=== PATIENT | male | born 1990 | race Caucasian/White ===

== ENCOUNTER → 2020-08-09 10:46 | Outpatient (BNVA) | payer OTHER, SELFPAY | PROVIDERS: PCP Physician Assistant; Visit Provider Nurse Practitioner | DX: Z76.89 Persons encountering health services in other specified circumstances (principal) ==

== ENCOUNTER 2021-02-03 08:24 | Outpatient (REF) | payer OTHER, SELFPAY ==
[2021-02-03 09:22] LABS: Estimated Average Glucose 91 mg/dL; Hemoglobin A1c % 4.8 %
[2021-02-03 09:37] LABS: Alanine Aminotransferase 8 U/L (0-40); Albumin Level 4.8 g/dL (3.5-5.0); Alkaline Phosphatase 67 U/L (39-117); Anion Gap 12 (12-20); Aspartate Amino Transferase 17 U/L (5-37); Bilirubin Total 0.9 mg/dL (0.0-1.0); Blood Urea Nitrogen 11 mg/dL (9-16); Calcium 9.6 mg/dL (8.4-10.2); Carbon Dioxide 27 mmol/L (22-29); Chloride 104 mmol/L (96-108); Estimated Glomerular Filt Rate > 60; Glucose Fasting 82 mg/dL (60-99); Potassium 3.8 mmol/L (3.3-5.1); Sodium 139 mmol/L (135-145); Total Protein 7.7 g/dL (6.5-8.0)
[2021-02-03 10:01] LABS: TSH reflex Free T4 0.85 uIU/mL (0.32-4.0)
== END 2021-02-03 08:25 | disposition home or self-care (01) ==
LOC: HO.LAB 08:24
PROVIDERS: PCP Physician Assistant; Visit Provider Physician Assistant
DX: Z13.29 Encounter for screening for other suspected endocrine disorder (principal)
CPT/HCPCS: 36415; 80053; 83036; 84443

== ENCOUNTER 2021-02-21 15:51 | Outpatient (REF) | payer OTHER, SELFPAY ==
--- NOTE | ~2021-02-21 | XR_ITS ---
EXAMINATION: XR CHEST CLINICAL INFORMATION: Encounter for screening for respiratory tuberculosis. COMPARISON: None TECHNIQUE: 2 views of the chest were obtained. FINDINGS: The cardiac mediastinal silhouette is normal in appearance. No effusions or pneumothoraces are identified. The lungs are clear. A normal pattern of pulmonary vasculature is noted. XR/XR chest 2V IMPRESSION: Normal chest. Lungs clear.
== END 2021-02-21 15:52 | disposition home or self-care (01) ==
LOC: HO.XRAY 15:51
PROVIDERS: PCP Physician Assistant; Visit Provider Physician Assistant
DX: Z11.1 Encounter for screening for respiratory tuberculosis (principal)
CPT/HCPCS: 71046

== ENCOUNTER 2023-06-18 13:32 | Emergency (ER) | payer OTHER, SELFPAY ==
[2023-06-18 14:35] VITALS: BP 150/97; PULSE 93; RESP 16; TEMP 37.4; O2SAT 98; BMI 18.0
--- NOTE | 2023-06-18 14:51 | ED.ABDPAIN ---
HPI - Abdominal Pain General Chief Complaint: Abdominal Pain Stated Complaint: Blood in Stool ? Colon CA Time Seen by Provider: 06/18/23 21:35 Source: patient Mode of arrival: ambulatory Limitations: no limitations History of Present Illness HPI narrative: Patient history of IBS claims that his father has history of colon cancer about 6 years ago also claims that his younger brother had colon cancer age of 10 but he is from different mother and another details comes here for diffuse abdominal pain having bowel movement with mucus and small amount of bright red also been constipated patient scheduled for colonoscopy but never had it does have history of questionable IBS says that he has bowels with mucus and slight amount of bright red blood Related Data Home Medications Medication Instructions Recorded Confirmed calcium carbonate 200 mg calcium 200 mg PO TID 05/16/20 01/31/21 (500 mg) chewable tablet (Tums) sennosides 8.6 mg tablet (Senna 17.2 mg PO BEDTIME 05/16/20 01/31/21 Lax) Previous Rx's Medication Instructions Recorded varenicline 0.5 mg (11)-1 mg (42) See Rx Instructions PO PER PKG DIR 02/08/21 tablets in a dose pack (Chantix #53 ea Starting Month Box) dicyclomine 20 mg tablet 20 mg PO QID PRN abdominal pain 06/18/23 #20 tabs Allergies Allergy/AdvReac Type Severity Reaction Status Date / Time ibuprofen Allergy Intermediate Nausea Verified 01/31/21 16:26 Penicillins [PENICILLINS] Allergy Intermediate NAUSEA & Verified 01/31/21 16:26 VOMITING penicillin V Allergy Unknown rash Verified 01/31/21 16:26 Review of Systems Review of Systems Yes all other systems are reviewed and are negative [facility] Family History Family History Father Cancer Colon cancer Paternal Aunt Cancer Brother Cancer Colon cancer Sister Mental health disorder Maternal Grandmother Mental health disorder Paternal Uncle Substance use disorder Social History Social History Household Members: Spouse Housing: Apartment Alcohol intake: current Alcohol intake frequency: holidays/special occasions only Patient Tobacco Use Status: Current everyday Tobacco user Cigarette Packs Per Day: 1 Smoked in Last 30 Days: Yes e-Cigarette/Vaping Use: Never Used Second Hand Smoke Exposure: No Use of substances other than those prescribed or required for medical reasons: No Substance Use Type: Marijuana Advance Directives: No Advance Directives Information Provided: Yes service: No Current occupational status: employed Current occupation: Super[employer] Physical Exam ED Vital Signs: Vital Signs - 24 hr 06/18/23 14:35 06/18/23 20:01 Temperature 99.3 F 98.5 F Pulse Rate 93 75 Respiratory Rate 16 14 Blood Pressure 150/97 H 156/103 H Pulse Oximetry 98 100 Oxygen Delivery Method Room Air Room Air BMI result Body Mass Index 18.0 Appearance: Alert. Oriented X3. No acute distress. Eyes: No pallor no distress ENT: Pharynx normal. Oral Mucosa moist Neck: Normal inspection. Neck supple. CVS: Normal heart rate and rhythm. Pulses normal. Respiratory: No respiratory distress. Equal air entry bilateral, no wheezing/rales/rhonchi Abdomen: Soft and nontender. Bowel sounds are present, no mass palpable, no CVA tenderness rectal: No mass palpable no hemorrhoids no blood Skin: Skin warm and dry. Normal skin color. Normal skin turgor. Extremities: No lower extremity edema. No calf tenderness Neuro: Oriented X 3. No motor deficit. Course Course Course Narrative: This is an RME: Additional HPI, ROS, PE not included below will be deferred to primary provider. This is a [id number] presenting to the ER with a complaint of changes in bowel habits x 1 month. Significant family medical history of colon cancer. Sees Jose Otoole for PCP, referred for colonoscopy in 2019 however was not performed due to COVID restrictions. Also noted some blood in his stool. And loose bowel movements. Also endorsing night sweats. Also endoring abdominal pain Plan: Labs, stool studies, may need CT abd w/ contrast, unable to order out in triage. Medical Decision Making Medical Decision Making MDM Narrative: Pain nonspecific complaints diffuse abdominal tenderness rectal exam was negative history of colon cancer bleeding father and half brother was 10 years old when was diagnosed with cancer patient advised to follow-up with residential therapist Lab Data MDM Lab Attestation statement: I reviewed the patient's lab results. 06/18/23 16:51 06/18/23 16:51 Labs: Lab Results 06/18/23 Range/Units 16:51 WBC 7.4 (4.8-10.8) X10*3/uL RBC 6.01 H (4.60-5.80) X10*6/uL Hgb 17.2 (14.0-18.0) g/dl Hct 48.1 (42.0-52.0) % MCV 80.0 (80.0-98.0) fL MCH 28.6 (27.0-33.0) pg MCHC 35.8 (31.0-36.0) g/dl RDW 13.9 (11.0-16.0) % Plt Count 257 (160-400) X10*3/uL MPV 9.5 (9.4-12.4) fL Immature Gran % (Auto) 0.3 (0.0-0.4) % Neut % (Auto) 70.7 (45-73) % Lymph % (Auto) 21.6 (20-40) % Humphreys % (Auto) 6.6 (2-11) % Eos % (Auto) 0.3 (0-4) % Baso % (Auto) 0.5 (0-2) % Lymph # (Auto) 1.6 (1.2-4.9) X10*3/uL Humphreys # (Auto) 0.5 (0.1-1.2) X10*3/uL Eos # (Auto) 0.0 (0.0-0.4) X10*3/uL Baso # (Auto) 0.0 (0.0-0.2) X10*3/uL Abs Immat Gran (auto) 0.02 (0.00-0.03) X10*3/uL Absolute Neuts (auto) 5.3 (2.0-8.3) x10*3/uL Absolute Nucleated RBC 0.000 (0.0-0.012) X10*3/uL Nucleated RBC % (auto) 0.0 (0.0-0.2) /100WBC Sodium 139 (135-145) mmol/L Potassium 3.9 (3.3-5.1) mmol/L Chloride 101 (96-108) mmol/L Carbon Dioxide 27 (22-29) mmol/L Anion Gap 15 (12-20) BUN 12 (9-16) mg/dL Creatinine 1.00 (0.5-1.4) mg/dL Estim Creat Clear Calc 77.5 Estimated GFR > 60 Random Glucose 92 (60-115) mg/dL Calcium 10.0 (8.4-10.2) mg/dL Total Bilirubin 0.8 (0.0-1.0) mg/dL Direct Bilirubin 0.3 (0.0-0.5) mg/dL AST 23 (5-37) U/L ALT 21 (0-40) U/L Alkaline Phosphatase 71 (39-117) U/L Total Protein 9.1 H (6.5-8.0) g/dL Albumin 5.3 H (3.5-5.0) g/dL Medications Administered Discontinued Medications Generic Name Dose Route Start Last Admin Trade Name Freq PRN Reason Stop Dose Admin Dicyclomine HCl 20 mg 06/18/23 22:09 06/18/23 22:24 Dicyclomine Hcl 10 Mg Capsule PO 06/18/23 22:10 20 mg ONCE ONE Administration Discharge Plan Discharge Clinical Impression: Abdominal pain Patient Disposition: Home, Self-Care Instructions: Chronic Abdominal Pain (ED) Additional Instructions: Follow-up with residential therapist for further evaluation it is unclear what causing your chronic abdominal pain Take dicyclomine for possible IBS Prescriptions: New dicyclomine 20 mg tablet 20 mg PO QID PRN (Reason: abdominal pain) Qty: 20 0RF No Action Chantix Starting Month Box 0.5 mg (11)- 1 mg (42) tablets,dose pack See Rx Instructions PO PER PKG DIR Qty: 53 0RF Rx Instructions: PO PER PKG DIR calcium carbonate [Tums] 200 mg calcium (500 mg) tablet,chewable 200 mg PO TID sennosides [Senna Lax] 8.6 mg tablet 17.2 mg PO BEDTIME Referrals: David Lawson MD [Physician] - 1 week
[2023-06-18 16:55] LABS: MANUAL DIFF FLAG NO
[2023-06-18 16:57] LABS: Basophils Percent Auto 0.5 % (0-2); Eosinophils Percent Auto 0.3 % (0-4); Hematocrit 48.1 % (42.0-52.0); Hemoglobin 17.2 g/dl (14.0-18.0); Imm Gran Abs Auto 0.02 X10*3/uL (0.00-0.03); Imm Gran Pct Auto 0.3 % (0.0-0.4); Lymphocytes Absolute Auto 1.6 X10*3/uL (1.2-4.9); Lymphocytes Percent Auto 21.6 % (20-40); Mean Corpuscular HGB Conc 35.8 g/dl (31.0-36.0); Mean Corpuscular Hemoglobin 28.6 pg (27.0-33.0); Mean Platelet Volume 9.5 fL (9.4-12.4); Monocytes Absolute Auto 0.5 X10*3/uL (0.1-1.2); Monocytes Percent Auto 6.6 % (2-11); Neutrophils Absolute Auto 5.3 x10*3/uL (2.0-8.3); Neutrophils Percent Auto 70.7 % (45-73); Platelet Count 257 X10*3/uL (160-400); Red Blood Count 6.01 X10*6/uL (4.60-5.80); Red Cell Distribution Width 13.9 % (11.0-16.0); White Blood Count 7.4 X10*3/uL (4.8-10.8)
[2023-06-18 17:11] LABS: Alanine Aminotransferase 21 U/L (0-40); Albumin Level 5.3 g/dL (3.5-5.0); Alkaline Phosphatase 71 U/L (39-117); Anion Gap 15 (12-20); Aspartate Amino Transferase 23 U/L (5-37); Bilirubin Direct 0.3 mg/dL (0.0-0.5); Bilirubin Total 0.8 mg/dL (0.0-1.0); Blood Urea Nitrogen 12 mg/dL (9-16); Carbon Dioxide 27 mmol/L (22-29); Chloride 101 mmol/L (96-108); Creatinine Clr Calc Pharmacy 77.5; Estimated Glomerular Filt Rate > 60; Glucose Random 92 mg/dL (60-115); Potassium 3.9 mmol/L (3.3-5.1); Sodium 139 mmol/L (135-145); Total Protein 9.1 g/dL (6.5-8.0)
[2023-06-18 20:01] VITALS: BP 156/103; PULSE 75; RESP 14; TEMP 36.9; O2SAT 100
--- NOTE | 2023-06-18 21:48 | PC.NURSE ---
Pt ca&ox4, no signs of distress. Pt reports diarrhea with bright red blood x 2days. Pt reports father had colon cancer at 42. Pt unsure if he has hemorrhoids Plan of care ongoing.
[2023-06-18] MEDS: Dicyclomine HCl 10 MG CAPSULE 20 MG PO (22:24)
--- NOTE | 2023-06-18 22:28 | PC.NURSE ---
Pt medicated per sep. Plan of care ongoing.
== END 2023-06-18 22:45 | disposition home or self-care (01) ==
PROVIDERS: Physician Assistant Medical; Emergency Provider Internal Medicine; PCP Physician Assistant
DX: R10.9 Unspecified abdominal pain (principal); F17.210 Nicotine dependence, cigarettes, uncomplicated; F12.90 Cannabis use, unspecified, uncomplicated
CPT/HCPCS: 36415; 80048; 80076; 85025; 99283; 99284